=== PATIENT | female | born 1945 | race Caucasian/White ===

== ENCOUNTER 2020-02-19 09:37 | Outpatient (REF) | payer MEDICARE, SELFPAY ==
[2020-02-19 13:05] LABS: Estimated Average Glucose 137 mg/dL; Hemoglobin A1c % 6.4 %
[2020-02-19 13:56] LABS: Alanine Aminotransferase 17 U/L (0-31); Albumin Level 4.2 g/dL (3.5-5.0); Alkaline Phosphatase 68 U/L (39-117); Anion Gap 18 (12-20); Aspartate Amino Transferase 16 U/L (5-31); Bilirubin Total 0.6 mg/dL (0.0-1.0); Blood Urea Nitrogen 12 mg/dL (9-16); Calcium 9.1 mg/dL (8.4-10.2); Carbon Dioxide 25 mmol/L (22-29); Chloride 104 mmol/L (96-108); Cholesterol 177 mg/dL; Estimated Glomerular Filt Rate > 60; Glucose Fasting 126 mg/dL (60-99); HDL Cholesterol 51 mg/dL; LDL Cholesterol Calculated 79 mg/dl; Potassium 4.6 mmol/l (3.3-5.1); Sodium 142 mmol/L (135-145); Total Protein 6.7 g/dL (6.5-8.0); Triglycerides 235 mg/dL
[2020-02-19 13:57] LABS: Creatinine Urine 79.12 mg/dL; Microalbum/Creatinine Ratio Ur 39.1 ug/mg cr
[2020-02-19 14:02] LABS: Vitamin D 25-OH Total 61.2 ng/mL (>30)
== END 2020-02-19 09:38 | disposition home or self-care (01) ==
LOC: HO.MANLDS 09:37
PROVIDERS: PCP Internal Medicine; Visit Provider Internal Medicine
DX: E11.37X9 Type 2 diabetes mellitus with diabetic macular edema, resolved following treatment, unspecified eye (principal)
CPT/HCPCS: 36415; 80053; 80061; 82043; 82306; 83036

== ENCOUNTER 2020-05-14 14:32 | Outpatient (REF) | payer MEDICARE, SELFPAY ==
[2020-05-15 08:01] LABS: Estimated Average Glucose 131 mg/dL; Hemoglobin A1c % 6.2 %
== END 2020-05-14 14:33 | disposition home or self-care (01) ==
LOC: HO.MANLDS 14:32
PROVIDERS: PCP Internal Medicine; Visit Provider Internal Medicine
DX: E11.37X9 Type 2 diabetes mellitus with diabetic macular edema, resolved following treatment, unspecified eye (principal)
CPT/HCPCS: 36415; 83036

== ENCOUNTER 2020-05-20 13:58 | Outpatient (REF) | payer MEDICARE, SELFPAY | END 2020-05-20 13:59 | disposition home or self-care (01) | LOC: HO.MANLDS 13:58 | PROVIDERS: PCP Internal Medicine; Visit Provider Internal Medicine | DX: T50.905D Adverse effect of unspecified drugs, medicaments and biological substances, subsequent encounter (principal) | CPT/HCPCS: 36415; 84443 ==

== ENCOUNTER 2020-10-23 09:46 | Outpatient (REF) | payer MEDICARE, SELFPAY ==
[2020-10-23 11:46] LABS: Estimated Average Glucose 148 mg/dL; Hemoglobin A1c % 6.8 %
[2020-10-23 12:00] LABS: Alanine Aminotransferase 22 U/L (0-31); Alkaline Phosphatase 76 U/L (39-117); Anion Gap 13 (12-20); Aspartate Amino Transferase 18 U/L (5-31); Bilirubin Total 0.6 mg/dL (0.0-1.0); Blood Urea Nitrogen 9 mg/dL (9-16); Calcium 9.4 mg/dL (8.4-10.2); Carbon Dioxide 26 mmol/L (22-29); Chloride 106 mmol/L (96-108); Cholesterol 188 mg/dL; Estimated Glomerular Filt Rate > 60; Glucose Fasting 137 mg/dL (60-99); HDL Cholesterol 51 mg/dL; LDL Cholesterol Calculated 90 mg/dl; Potassium 4.2 mmol/L (3.3-5.1); Sodium 141 mmol/L (135-145); Total Protein 6.6 g/dL (6.5-8.0); Triglycerides 235 mg/dL
[2020-10-23 12:02] LABS: Free T4 (Free Thyroxine) 1.02 ng/dL (0.71-1.85); Thyroid Stimulating Hormone 3.21 uIU/mL (0.32-4.0)
== END 2020-10-23 09:47 | disposition home or self-care (01) ==
LOC: HO.MANLDS 09:46
PROVIDERS: PCP Internal Medicine; Visit Provider Internal Medicine
DX: E03.9 Hypothyroidism, unspecified (principal); R73.01 Impaired fasting glucose; E78.00 Pure hypercholesterolemia, unspecified; I10 Essential (primary) hypertension
CPT/HCPCS: 36415; 80053; 80061; 83036; 84439; 84443

== ENCOUNTER 2021-04-14 14:04 | Outpatient (REF) | payer MEDICARE, SELFPAY ==
[2021-04-14 20:04] LABS: Estimated Average Glucose 143 mg/dL; Hemoglobin A1c % 6.6 %
[2021-04-14 20:06] LABS: Alanine Aminotransferase 22 U/L (0-31); Alkaline Phosphatase 64 U/L (39-117); Anion Gap 13 (12-20); Aspartate Amino Transferase 16 U/L (5-31); Bilirubin Total 0.5 mg/dL (0.0-1.0); Blood Urea Nitrogen 13 mg/dL (9-16); Calcium 9.5 mg/dL (8.4-10.2); Carbon Dioxide 29 mmol/L (22-29); Chloride 103 mmol/L (96-108); Estimated Glomerular Filt Rate 55; Glucose Random 174 mg/dL (60-115); Potassium 4.5 mmol/L (3.3-5.1); Sodium 140 mmol/L (135-145); Total Protein 6.5 g/dL (6.5-8.0)
[2021-04-14 20:12] LABS: Creatinine Urine 97.34 mg/dL; Microalbum/Creatinine Ratio Ur 9.2 ug/mg cr
[2021-04-14 20:27] LABS: Thyroid Stimulating Hormone 1.17 uIU/mL (0.32-4.0); Vitamin D 25-OH Total 44.8 ng/mL (>30)
== END 2021-04-14 14:05 | disposition home or self-care (01) ==
LOC: HO.MANLDS 14:04
PROVIDERS: PCP Internal Medicine; Visit Provider Internal Medicine
DX: E11.37X9 Type 2 diabetes mellitus with diabetic macular edema, resolved following treatment, unspecified eye (principal)
CPT/HCPCS: 36415; 80053; 82043; 82306; 83036; 84443

== ENCOUNTER 2021-08-22 13:59 | Outpatient (REF) | payer MEDICARE, SELFPAY ==
[2021-08-22 19:08] LABS: Estimated Average Glucose 143 mg/dL; Hemoglobin A1c % 6.6 %
[2021-08-22 19:14] LABS: Vitamin D 25-OH Total 92.3 ng/mL (>30)
== END 2021-08-22 14:00 | disposition home or self-care (01) ==
LOC: HO.MANLDS 13:59
PROVIDERS: Visit Provider Internal Medicine
DX: E11.37X9 Type 2 diabetes mellitus with diabetic macular edema, resolved following treatment, unspecified eye (principal); M85.80 Other specified disorders of bone density and structure, unspecified site
CPT/HCPCS: 36415; 82306; 83036

== ENCOUNTER 2021-11-19 14:01 | Outpatient (REF) | payer MEDICARE, SELFPAY ==
[2021-11-19 18:28] LABS: Estimated Average Glucose 146 mg/dL; Hemoglobin A1c % 6.7 %
[2021-11-19 18:30] LABS: Alanine Aminotransferase 18 U/L (0-31); Albumin Level 4.2 g/dL (3.5-5.0); Alkaline Phosphatase 69 U/L (39-117); Anion Gap 15 (12-20); Aspartate Amino Transferase 17 U/L (5-31); Bilirubin Total 0.5 mg/dL (0.0-1.0); Blood Urea Nitrogen 14 mg/dL (9-16); Calcium 9.5 mg/dL (8.4-10.2); Carbon Dioxide 28 mmol/L (22-29); Chloride 104 mmol/L (96-108); Cholesterol 181 mg/dL; Estimated Glomerular Filt Rate 56; Glucose Random 113 mg/dL (60-115); HDL Cholesterol 44 mg/dL; LDL Cholesterol Calculated 81 mg/dl; Potassium 4.1 mmol/L (3.3-5.1); Sodium 143 mmol/L (135-145); Total Protein 6.8 g/dL (6.5-8.0); Triglycerides 283 mg/dL
[2021-11-19 18:51] LABS: Free T4 (Free Thyroxine) 1.09 ng/dL (0.71-1.85); Thyroid Stimulating Hormone 1.33 uIU/mL (0.32-4.0)
== END 2021-11-19 14:02 | disposition home or self-care (01) ==
LOC: HO.MANLDS 14:01
PROVIDERS: Visit Provider Internal Medicine
DX: E03.9 Hypothyroidism, unspecified (principal); R73.01 Impaired fasting glucose; E78.00 Pure hypercholesterolemia, unspecified; I10 Essential (primary) hypertension
CPT/HCPCS: 36415; 80053; 80061; 83036; 84439; 84443

== ENCOUNTER 2022-03-24 10:09 | Outpatient (REF) | payer MEDICARE, SELFPAY ==
[2022-03-24 20:56] LABS: Alanine Aminotransferase 21 U/L (0-31); Albumin Level 3.9 g/dL (3.5-5.0); Alkaline Phosphatase 71 U/L (39-117); Anion Gap 15 (12-20); Aspartate Amino Transferase 23 U/L (5-31); Bilirubin Total 0.6 mg/dL (0.0-1.0); Blood Urea Nitrogen 11 mg/dL (9-16); Calcium 9.8 mg/dL (8.4-10.2); Carbon Dioxide 28 mmol/L (22-29); Chloride 103 mmol/L (96-108); Cholesterol 214 mg/dL; Estimated Glomerular Filt Rate > 60; Glucose Random 122 mg/dL (60-115); HDL Cholesterol 42 mg/dL; Potassium 4.4 mmol/L (3.3-5.1); Sodium 142 mmol/L (135-145); Total Protein 6.3 g/dL (6.5-8.0); Triglycerides 431 mg/dL
[2022-03-24 21:12] LABS: Free T4 (Free Thyroxine) 1.11 ng/dL (0.71-1.85); Thyroid Stimulating Hormone 2.88 uIU/mL (0.32-4.0)
[2022-03-25 07:45] LABS: Estimated Average Glucose 137 mg/dL; Hemoglobin A1c % 6.4 %
== END 2022-03-24 10:10 | disposition home or self-care (01) ==
LOC: HO.MANLDS 10:09
PROVIDERS: Visit Provider Internal Medicine
DX: E03.9 Hypothyroidism, unspecified (principal); R73.01 Impaired fasting glucose; E78.00 Pure hypercholesterolemia, unspecified; I10 Essential (primary) hypertension
CPT/HCPCS: 36415; 80053; 80061; 83036; 84439; 84443

== ENCOUNTER 2022-07-08 10:27 | Outpatient (REF) | payer MEDICARE, SELFPAY ==
[2022-07-08 14:57] LABS: Estimated Average Glucose 131 mg/dL; Hemoglobin A1c % 6.2 %
[2022-07-08 15:25] LABS: Anion Gap 14 (12-20); Blood Urea Nitrogen 12 mg/dL (9-16); Calcium 9.1 mg/dL (8.4-10.2); Carbon Dioxide 30 mmol/L (22-29); Chloride 106 mmol/L (96-108); Estimated Glomerular Filt Rate > 60; Glucose Random 119 mg/dL (60-115); Potassium 4.7 mmol/L (3.3-5.1); Sodium 145 mmol/L (135-145)
[2022-07-08 15:36] LABS: Vitamin D 25-OH Total 65.7 ng/mL (>30)
== END 2022-07-08 10:28 | disposition home or self-care (01) ==
LOC: HO.MANLDS 10:27
PROVIDERS: Visit Provider Internal Medicine
DX: I10 Essential (primary) hypertension (principal); E11.37X9 Type 2 diabetes mellitus with diabetic macular edema, resolved following treatment, unspecified eye
CPT/HCPCS: 36415; 80048; 82306; 83036

== ENCOUNTER 2022-09-30 10:50 | Outpatient (REF) | payer MEDICARE, SELFPAY ==
[2022-09-30 13:30] LABS: Estimated Average Glucose 140 mg/dL; Hemoglobin A1c % 6.5 %
[2022-09-30 13:45] LABS: Cholesterol 171 mg/dL; HDL Cholesterol 49 mg/dL; LDL Cholesterol Calculated 74 mg/dl; Triglycerides 242 mg/dL
[2022-09-30 14:05] LABS: Vitamin D 25-OH Total 80.5 ng/mL (>30)
== END 2022-09-30 10:51 | disposition home or self-care (01) ==
LOC: HO.MANLDS 10:50
PROVIDERS: Visit Provider Internal Medicine
DX: E11.37X9 Type 2 diabetes mellitus with diabetic macular edema, resolved following treatment, unspecified eye (principal); E78.5 Hyperlipidemia, unspecified; E55.9 Vitamin D deficiency, unspecified; E11.3293 Type 2 diabetes mellitus with mild nonproliferative diabetic retinopathy without macular edema, bilateral
CPT/HCPCS: 36415; 80061; 82306; 83036

== ENCOUNTER 2022-12-29 09:34 | Outpatient (REF) | payer MEDICARE, SELFPAY ==
[2022-12-29 14:03] LABS: Estimated Average Glucose 148 mg/dL; Hemoglobin A1c % 6.8 % (<6.0)
[2022-12-29 14:32] LABS: Alanine Aminotransferase 17 U/L (0-31); Alkaline Phosphatase 72 U/L (39-117); Anion Gap 12 (12-20); Aspartate Amino Transferase 16 U/L (5-31); Bilirubin Total 0.5 mg/dL (0.0-1.0); Blood Urea Nitrogen 10 mg/dL (9-16); Calcium 9.5 mg/dL (8.4-10.2); Carbon Dioxide 29 mmol/L (22-29); Chloride 103 mmol/L (96-108); Cholesterol 155 mg/dL (<200); Estimated Glomerular Filt Rate > 60; Free T4 (Free Thyroxine) 1.07 ng/dL (0.71-1.85); Glucose Random 122 mg/dL (60-115); HDL Cholesterol 49 mg/dL (>40); LDL Cholesterol Calculated 68 mg/dL (<100); Sodium 140 mmol/L (135-145); Thyroid Stimulating Hormone 1.64 uIU/mL (0.32-4.0); Total Protein 6.9 g/dL (6.5-8.0); Triglycerides 193 mg/dL (<150)
== END 2022-12-29 09:35 | disposition home or self-care (01) ==
LOC: HO.MANLDS 09:34
PROVIDERS: Visit Provider Internal Medicine
DX: E03.9 Hypothyroidism, unspecified (principal); E11.9 Type 2 diabetes mellitus without complications
CPT/HCPCS: 36415; 80053; 80061; 83036; 84439; 84443

== ENCOUNTER 2023-03-29 11:16 | Outpatient (REF) | payer MEDICARE, SELFPAY ==
[2023-03-29 13:29] LABS: MANUAL DIFF FLAG NO
[2023-03-29 13:46] LABS: Basophils Absolute Auto 0.1 X10*3/uL (0.0-0.2); Eosinophils Absolute Auto 0.4 X10*3/uL (0.0-0.4); Eosinophils Percent Auto 6.7 % (0-4); Hemoglobin 13.8 g/dl (12.0-16.0); Imm Gran Abs Auto 0.01 X10*3/uL (0.00-0.03); Imm Gran Pct Auto 0.2 % (0.0-0.4); Lymphocytes Absolute Auto 1.8 X10*3/uL (1.2-4.9); Lymphocytes Percent Auto 34.6 % (20-40); Mean Corpuscular HGB Conc 33.7 g/dl (31.0-35.0); Mean Corpuscular Hemoglobin 29.7 pg (27.0-33.0); Mean Corpuscular Volume 88.2 fL (80.0-98.0); Mean Platelet Volume 11.4 fL (9.4-12.3); Monocytes Absolute Auto 0.4 X10*3/uL (0.1-1.2); Monocytes Percent Auto 7.2 % (2-11); Neutrophils Absolute Auto 2.7 x10*3/uL (2.0-8.3); Neutrophils Percent Auto 50.3 % (45-73); Platelet Count 248 X10*3/uL (160-400); Red Blood Count 4.65 X10*6/uL (4.20-5.50); White Blood Count 5.3 X10*3/uL (4.8-10.8)
[2023-03-29 14:01] LABS: Estimated Average Glucose 134 mg/dL; Hemoglobin A1c % 6.3 % (<6.0)
[2023-03-29 14:47] LABS: Alanine Aminotransferase 23 U/L (0-31); Albumin Level 3.9 g/dL (3.5-5.0); Alkaline Phosphatase 55 U/L (39-117); Anion Gap 14 (12-20); Aspartate Amino Transferase 17 U/L (5-31); Bilirubin Total 0.6 mg/dL (0.0-1.0); Blood Urea Nitrogen 11 mg/dL (9-16); Calcium 9.7 mg/dL (8.4-10.2); Carbon Dioxide 26 mmol/L (22-29); Chloride 107 mmol/L (96-108); Cholesterol 177 mg/dL (<200); Estimated Glomerular Filt Rate > 60; Glucose Random 148 mg/dL (60-115); HDL Cholesterol 46 mg/dL (>40); LDL Cholesterol Calculated 84 mg/dL (<100); Potassium 3.9 mmol/L (3.3-5.1); Sodium 143 mmol/L (135-145); Total Protein 6.7 g/dL (6.5-8.0); Triglycerides 236 mg/dL (<150)
[2023-03-29 15:05] LABS: Free T4 (Free Thyroxine) 0.97 ng/dL (0.71-1.85); Thyroid Stimulating Hormone 1.88 uIU/mL (0.32-4.0); Vitamin D 25-OH Total 61.8 ng/mL (>30)
== END 2023-03-29 11:17 | disposition home or self-care (01) ==
LOC: HO.MANLDS 11:16
PROVIDERS: Visit Provider Internal Medicine
DX: E11.37X9 Type 2 diabetes mellitus with diabetic macular edema, resolved following treatment, unspecified eye (principal); K22.2 Esophageal obstruction; E03.9 Hypothyroidism, unspecified; E78.00 Pure hypercholesterolemia, unspecified; E55.9 Vitamin D deficiency, unspecified
CPT/HCPCS: 36415; 80053; 80061; 82306; 83036; 84439; 84443; 85025

== ENCOUNTER 2023-08-27 10:11 | Outpatient (REF) | payer MEDICARE, SELFPAY ==
[2023-08-27 13:26] LABS: Estimated Average Glucose 143 mg/dL; Hemoglobin A1c % 6.6 % (<6.0)
[2023-08-27 14:15] LABS: Thyroid Stimulating Hormone 1.68 uIU/mL (0.32-4.0); Vitamin D 25-OH Total 77.1 ng/mL (>30)
== END 2023-08-27 10:12 | disposition home or self-care (01) ==
LOC: HO.MANLDS 10:11
PROVIDERS: Visit Provider Internal Medicine
DX: E03.9 Hypothyroidism, unspecified (principal); E55.9 Vitamin D deficiency, unspecified; E11.9 Type 2 diabetes mellitus without complications
CPT/HCPCS: 36415; 82306; 83036; 84443

== ENCOUNTER 2023-12-06 10:23 | Outpatient (REF) | payer MEDICARE, SELFPAY ==
[2023-12-06 13:25] LABS: MANUAL DIFF FLAG NO
[2023-12-06 13:35] LABS: Basophils Absolute Auto 0.1 X10*3/uL (0.0-0.2); Eosinophils Absolute Auto 0.4 X10*3/uL (0.0-0.4); Eosinophils Percent Auto 6.1 % (0-4); Hematocrit 42.1 % (37.0-47.0); Hemoglobin 13.8 g/dl (12.0-16.0); Imm Gran Abs Auto 0.01 X10*3/uL (0.00-0.03); Imm Gran Pct Auto 0.2 % (0.0-0.4); Lymphocytes Percent Auto 33.7 % (20-40); Mean Corpuscular HGB Conc 32.8 g/dl (31.0-35.0); Mean Corpuscular Hemoglobin 29.6 pg (27.0-33.0); Mean Corpuscular Volume 90.1 fL (80.0-98.0); Monocytes Absolute Auto 0.5 X10*3/uL (0.1-1.2); Monocytes Percent Auto 7.8 % (2-11); Neutrophils Absolute Auto 3.1 x10*3/uL (2.0-8.3); Neutrophils Percent Auto 51.2 % (45-73); Platelet Count 224 X10*3/uL (160-400); Red Blood Count 4.67 X10*6/uL (4.20-5.50); Red Cell Distribution Width 12.9 % (11.0-16.0); White Blood Count 6.1 X10*3/uL (4.8-10.8)
[2023-12-06 13:39] LABS: Estimated Average Glucose 146 mg/dL; Hemoglobin A1C 174.8143 umol/L; Hemoglobin A1c % 6.7 % (<6.0); Total Hemoglobin (HGBA1C) 3491.7184 umol/L
[2023-12-06 15:25] LABS: Alanine Aminotransferase 23 U/L (0-31); Alkaline Phosphatase 74 U/L (39-117); Anion Gap 13 (12-20); Aspartate Amino Transferase 21 U/L (5-31); Bilirubin Total 0.6 mg/dL (0.0-1.0); Blood Urea Nitrogen 12 mg/dL (9-16); Calcium 10.1 mg/dL (8.4-10.2); Carbon Dioxide 30 mmol/L (22-29); Chloride 103 mmol/L (96-108); Cholesterol 208 mg/dL (<200); Estimated Glomerular Filt Rate > 60; Glucose Random 143 mg/dL (60-115); HDL Cholesterol 47 mg/dL (>40); LDL Cholesterol Calculated 92 mg/dL (<100); Potassium 4.3 mmol/L (3.3-5.1); Sodium 142 mmol/L (135-145); Total Protein 6.8 g/dL (6.5-8.0); Triglycerides 347 mg/dL (<150)
[2023-12-06 15:27] LABS: T4 Thyroxine 7.9 ug/dL (4.5-12.0); Thyroid Stimulating Hormone 2.37 uIU/mL (0.32-4.0)
[2023-12-06 15:38] LABS: Vitamin B12 843 pg/mL (200-900)
== END 2023-12-06 10:24 | disposition home or self-care (01) ==
LOC: HO.MANLDS 10:23
PROVIDERS: Internal Medicine; Visit Provider Physician Assistant
DX: E78.1 Pure hyperglyceridemia (principal); E53.8 Deficiency of other specified B group vitamins; E03.9 Hypothyroidism, unspecified; R73.01 Impaired fasting glucose
CPT/HCPCS: 36415; 80053; 80061; 82607; 83036; 84436; 84443; 85025

== ENCOUNTER 2024-08-29 09:52 | Outpatient (REF) | payer MEDICARE, SELFPAY ==
--- OUTSIDE RECORDS SUMMARY | 2024-08-29 10:40 | XMS_ITS | Data Portability ---
Author Organization [facility], Telehealth Patient Home Address [address] [place] [address] Assessment Encounter Date Assessment Date Assessment LastModified by Organization Details LastModified Time 10/27/2023 10/27/2023 [id number] [place] [id number] (VEGETABLES COOK) [facility] MODERATE MUST MEET 2 OUT OF 3 ELEMENTS: PROBLEMS, DATA OR RISK ELEMENT 1: PROBLEMS ADDRESSED 1 OR MORE CHRONIC ILLNESS WITH EXACERBATION OR 2 OR MORE STABLE CHRONIC ILLNESSES OR 1 UNDIAGNOSED NEW PROBLEM OR 1 ACUTE ILLNESS W/SYMPTOMS OR 1 ACUTE COMPLICATED INJURY ELEMENT 2: DATA MUST MEET 1 OF 3 CATEGORIES CATEGORY 1: REVIEW OF PRIOR EXTERNAL NOTES, REVIEW OF RESULTS, ORDERING OF EACH TEST, ASSESSMENT REQUIRING INDEPENDENT HISTORIAN OR CATEGORY 2: INDEPENDENT INTERPRETATION OF TESTS BY ANOTHER PHYSICIAN OR SPECIALIST OR CATEGORY 3: DISCUSSION OF MGT OR TEST INTERPRETATION W/EXTERNAL PHYSICIAN OR SPECIALIST ELEMENT 3: RISK RISK OF COMPLICATIONS AND/OR MORBIDITY OR MORTALITY OF PATIENT MANAGEMENT PROVIDER MUST THOROUGHLY DOCUMENT EACH ELEMENT THAT IS COVERED Not available 10/27/2023 14:59:36 12/13/2023 12/13/2023 [id number] [place] [id number] (VEGETABLES COOK) [facility] MODERATE MUST MEET 2 OUT OF 3 ELEMENTS: PROBLEMS, DATA OR RISK ELEMENT 1: PROBLEMS ADDRESSED 1 OR MORE CHRONIC ILLNESS WITH EXACERBATION OR 2 OR MORE STABLE CHRONIC ILLNESSES OR 1 UNDIAGNOSED NEW PROBLEM OR 1 ACUTE ILLNESS W/SYMPTOMS OR 1 ACUTE COMPLICATED INJURY ELEMENT 2: DATA MUST MEET 1 OF 3 CATEGORIES CATEGORY 1: REVIEW OF PRIOR EXTERNAL NOTES, REVIEW OF RESULTS, ORDERING OF EACH TEST, ASSESSMENT REQUIRING INDEPENDENT HISTORIAN OR CATEGORY 2: INDEPENDENT INTERPRETATION OF TESTS BY ANOTHER PHYSICIAN OR SPECIALIST OR CATEGORY 3: DISCUSSION OF MGT OR TEST INTERPRETATION W/EXTERNAL PHYSICIAN OR SPECIALIST ELEMENT 3: RISK RISK OF COMPLICATIONS AND/OR MORBIDITY OR MORTALITY OF PATIENT MANAGEMENT PROVIDER MUST THOROUGHLY DOCUMENT EACH ELEMENT THAT IS COVERED Not available 12/13/2023 14:21:55 01/04/2024 01/04/2024 [id number] [place] [id number] (VEGETABLES COOK) [facility] MODERATE MUST MEET 2 OUT OF 3 ELEMENTS: PROBLEMS, DATA OR RISK ELEMENT 1: PROBLEMS ADDRESSED 1 OR MORE CHRONIC ILLNESS WITH EXACERBATION OR 2 OR MORE STABLE CHRONIC ILLNESSES OR 1 UNDIAGNOSED NEW PROBLEM OR 1 ACUTE ILLNESS W/SYMPTOMS OR 1 ACUTE COMPLICATED INJURY ELEMENT 2: DATA MUST MEET 1 OF 3 CATEGORIES CATEGORY 1: REVIEW OF PRIOR EXTERNAL NOTES, REVIEW OF RESULTS, ORDERING OF EACH TEST, ASSESSMENT REQUIRING INDEPENDENT HISTORIAN OR CATEGORY 2: INDEPENDENT INTERPRETATION OF TESTS BY ANOTHER PHYSICIAN OR SPECIALIST OR CATEGORY 3: DISCUSSION OF MGT OR TEST INTERPRETATION W/EXTERNAL PHYSICIAN OR SPECIALIST ELEMENT 3: RISK RISK OF COMPLICATIONS AND/OR MORBIDITY OR MORTALITY OF PATIENT MANAGEMENT PROVIDER MUST THOROUGHLY DOCUMENT EACH ELEMENT THAT IS COVERED Not available 01/04/2024 14:53:10 03/22/2024 03/22/2024 [id number] [place] [id number] (VEGETABLES COOK) [facility] MODERATE MUST MEET 2 OUT OF 3 ELEMENTS: PROBLEMS, DATA OR RISK ELEMENT 1: PROBLEMS ADDRESSED 1 OR MORE CHRONIC ILLNESS WITH EXACERBATION OR 2 OR MORE STABLE CHRONIC ILLNESSES OR 1 UNDIAGNOSED NEW PROBLEM OR 1 ACUTE ILLNESS W/SYMPTOMS OR 1 ACUTE COMPLICATED INJURY ELEMENT 2: DATA MUST MEET 1 OF 3 CATEGORIES CATEGORY 1: REVIEW OF PRIOR EXTERNAL NOTES, REVIEW OF RESULTS, ORDERING OF EACH TEST, ASSESSMENT REQUIRING INDEPENDENT HISTORIAN OR CATEGORY 2: INDEPENDENT INTERPRETATION OF TESTS BY ANOTHER PHYSICIAN OR SPECIALIST OR CATEGORY 3: DISCUSSION OF MGT OR TEST INTERPRETATION W/EXTERNAL PHYSICIAN OR SPECIALIST ELEMENT 3: RISK RISK OF COMPLICATIONS AND/OR MORBIDITY OR MORTALITY OF PATIENT MANAGEMENT PROVIDER MUST THOROUGHLY DOCUMENT EACH ELEMENT THAT IS COVERED Not available 03/22/2024 14:44:52 Plan of Treatment Reminders Order Date Submit Date Provider Last Modified By Organization Details Last Modified Time Details Appointments MEDICARE ANNUAL WELLNESS 2024 12:00P M DR DODSON Not available Not available Not available Lab HbA1c (hemoglob in A1c), blood 2023 024 [facility], [address] [place] [address], [place], [address], 01/04/2024 14:56:16 CMP, serum or plasma 2023 024 [facility], [address] [place] [address], [place], [address], 01/04/2024 14:56:16 lipid panel, blood 2023 024 [facility], [address] [place] [address], [place], [address], 12/07/2023 15:08:10 CBC w/ auto diff 2023 024 [facility], [address] [place] [address], [address], 12/07/2023 11:44:12 CMP, serum or plasma 2023 024 [facility], [address] [place] [address], [address], 12/07/2023 11:44:12 Referral None recorded. Procedures None recorded. Surgeries None recorded. Imaging MAMMO, screening , bilateral 2023 024 [email or web address] 10 Not available 10/27/2023 15:10:26 bone density 2023 024 [email or web address] 10 Not available 10/27/2023 15:10:26 Medication Orders metformin 500 mg tablet 2024 025 [facility]2024, [address] [place], [address], 03/22/2024 14:47:01 doxycycli ne hyclate 100 mg capsule 2023 025 [facility] #2024, [address] [place], [address], 03/22/2024 14:16:48 amlodipin e 10 mg tablet 2023 024 [facility] #5, [address] [place], [address], 12/13/2023 14:28:37 cephalexi n 500 mg capsule 2023 025 [facility], [address] [place], [address], 03/22/2024 14:16:42 amlodipin e 5 mg tablet 2023 024 [facility], [address] [place], [address], 11/15/2023 21:02:07 Patient TargetsNo targets recorded. Patient Instructions Encounter Date Encounter Id Patient Instructions Last Modified By Organization Details Last Modified Time 09/01/2023 [id number] learning about type 2 diabetes Not available 09/01/2023 14:00:40 type 2 diabetes: care instructions Not available 09/01/2023 14:00:39 10/27/2023 [id number] actinic keratosis: care instructions Not available 10/27/2023 15:06:22 12/13/2023 [id number] pulse oximetry* Not available 12/13/2023 14:28:41 learning about type 2 diabetes Not available 12/13/2023 14:28:35 type 2 diabetes: care instructions Not available 12/13/2023 14:28:35 high blood pressure: care instructions Not available 12/13/2023 14:28:35 learning about high blood pressure Not available 12/13/2023 14:28:35 hypothyroidism: care instructions Not available 12/13/2023 14:28:35 01/04/2024 [id number] learning about type 2 diabetes Not available 01/04/2024 14:55:02 type 2 diabetes: care instructions Not available 01/04/2024 14:55:02 03/22/2024 [id number] constipation: care instructions Not available 03/22/2024 14:46:53 pulse oximetry* Not available 03/22/2024 14:46:53 high blood pressure: care instructions Not available 03/22/2024 14:46:53 learning about high blood pressure Not available 03/22/2024 14:46:53 hypothyroidism: care instructions Not available 03/22/2024 14:46:53 Reason for Referral None Reported. Results Created Date Observation Date Name Description Value Unit Range Abnormal Flag Note LastModifiedBy Organization Detail LastModifiedTime 12/13/19 24 12/13/2023 pulse oxime try* Result 95 Not Available [facility] [address] [facility] [address], [place], [address], 11/17/2023 15:48:56 03/22/19 25 03/22/2024 pulse oxime try* Result 98% Not Available [facility] [address] [facility] [address], [place], [address], 03/21/2024 09:03:40 04/20/19 25 04/18/2024 MAMMO , scree marah, bilat eral No observ ation record ed. [email or web address] [facility] - Callback Orders Only [address] [place], [address], 04/19/2024 16:33:46 07/15/19 25 07/13/2024 bone densi ty No observ ation record ed. [email or web address] [facility] [address] [place], [address], 07/14/2024 16:19:33 Result Notes None recorded. 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 Not Available [facility] 3 09:24:55 Krystle sahni [id number] Completed 201912/25/2019 Terrance Dodson, [address] [place], [address], [facility] 0 06:32:35 Type 2 diabetes mellitus 14534125 Completed 201902/26/2020 Terrance Machado Teresarico, DO [address] [place] [address], [address], [facility] 1 11:31:39 Achalasi a of esophagu s 26040283 Completed 201912/25/2019 Terrance Dodson, DO [address] [place] [address], [address], [facility] 0 06:32:29 [facility] hyperten shine 78269048 Active 2017 Not Available [facility] 3 09:24:55 Environm ental allergy 078663820 Active 2017 Not Available [facility] 3 09:24:55 Hypercho lesterol emia 74280625 Active 2017 Not Available [facility] 3 09:24:55 Hemorrho ids 91671454 Active 2017 Not Available [facility] 3 09:24:55 Divertic ulitis 979457300 Active 2017 Not Available [facility] 3 09:24:55 Impaired fasting glycemia 145112077 Completed 201707/05/2019 Terrance Dodson, DO [address] [place] [address], [address], [facility] 1 14:05:59 Allergic rhinitis 38650081 Active 2017 Not Available [facility] 3 09:24:55 Hiatal hernia 97209101 Active 2017 Not Available [facility] 3 09:24:55 Asthma 896280319 Active 2017 Not Available [facility] 3 09:24:55 Strictur e of esophagu s 77099589 Active 2017 dilated X2 Not Available [facility] 3 09:24:55 Hypothyr oidism 02488391 Active 2017 Not Available [facility] 3 09:24:55 Impaired fasting glycemia 515424080 Active 2020 Not Available [facility] 3 09:24:55 Type 2 diabetes mellitus 77085814 Active 2020 Not Available [facility] 3 09:24:55 Lumbar spondylo sis 748015572 Active 2021 Not Available [facility] 3 09:24:55 Postmeno pausal osteopen ia 075784149 Active 2021 Not Available [facility] 3 09:24:55 Low back pain 023884245 Active 2021 Not Available [facility] 3 09:24:55 Lumbar spondylo listhesi s 1622428788 13580 Active 2021 Not Available [facility] 3 09:24:55 Retinal artery occlusio n 839034366 Active 2021 Not Available [facility] 3 09:24:55 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 858932583 Active 2022 Not Available [facility] 3 09:24:55 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 Not Available [facility] 3 09:24:55 Cobalami n deficien cy 994728353 Active 2022 Not Available [facility] 3 09:24:55 Dyspnea on exertion 93802317 Active 2022 Not Available [facility] 3 09:24:55 Hyperlip idemia 46498432 Active 2022 Not Available [facility] 3 09:24:55 Vitamin D deficien cy 96990043 Active 2022 Not Available [facility] 3 09:24:55 Actinic keratosi s 146764062 Active 2023 Terrance Dodson DO [address] [place], [address], [facility] 4 15:04:05 Infectio n of sebaceou s cyst 221939162 Active 2023 Terrance Dodson DO [address] [place] [address], [address], [facility] 4 14:25:52 Long-ter m drug therapy Active 2024 Terrance Dodson DO [address] [place] [address], [address], [facility] 21:36:26 Constipa tion 61625859 Active 2024 Terrance Dodson DO [address] [place] [address], [address], [facility] 14:45:06 Impacted cerumen of bilatera l ears 4901855778 352089 Active 2024 Terrance Dodson DO [address] [place] [address], [address], [facility] 14:46:02 Notes:Some problems listed i n Document: #[id number] could not be added to this patient's chart. Please review this document and add these problems to the patient's chart manually as needed. Problem Notes None recorded. Procedures Surgical History Date Name Laterality Status Provider Name and Address Organization Details Recorded Time 025 Most Recent Mammogram completed Katie Mendez [facility] 04/19/2024 16:33:22 024 Colonoscopy completed Terrance Dodson DO [address] [place] [address], [address], [facility] 04/01/2023 15:32:54 017 Date of Last Pap Smear completed [facility] 06/01/2018 08:21:07 017 Cataract Surgery completed [facility] 06/01/2018 14:01:32 017 Cataract Surgery completed [facility] 06/01/2018 14:01:18 tonsillectomy completed Monique cole NP, S [address] [place] [address], [address], [facility] 06/01/2018 13:43:00 Episiotomy or vaginal repair completed Monique Horton NP, [address] [place], [address], [facility] 06/01/2018 13:43:11 extraction of cataract completed Monique Horton NP, [address] [place], [address], [facility] 06/01/2018 13:56:38 Imaging Results None recorded. Procedure Notes None recorded. Medical Equipment None Reported. Allergies Allergen ID Allergen Name Allergen Category Reaction Reaction Severity Criticality Documentation Date Start Date Code Code System Note Provider Name and Address Organization Details Recorded Time 3066 Substance with sulfonami de structure and antibacte rial mechanism of action (substanc e) medicatio n hives Not available Not available 06/28/2018 86162 8003 SNOMED Rachel Camara [facility] 9 11:12:39 330 Product containin g angiotens in-conver ting enzyme inhibitor (product) medicatio n cough Not available Not available 04/20/2017 48711 009 SNOMED Bryanna Alvarez [facility] 8 16:20:01 331 codeine medicatio n Not available Not available Not available 04/20/2017 2670 RxNorm Bryanna Alvarez [facility] 8 16:20:05 Medications Name Sig Start Date Stop Date Status Note LastModified by Organization Details LastModified Time losartan 50 mg tablet TAKE 1 TABLET BY MOUTH TWICE A DAY active Not Available Not Available No t Available amoxicillin 500 mg capsule 11/12 completed Not Available Not Available Not Available metformin 500 mg tablet Take 1 tablet every day by oral route for 90 days. 2024 active Not Available Not Available Not Avai lable magnesium 500 mg tablet 250mg every other night, then 500mg with calcium 1000mg and vit. d 400IU active oil Not Available Not Available No t Available doxycycline hyclate 100 mg capsule Take 1 capsule twice a day by oral route for 10 days. 03/22 completed Not Available Not Available Not Available ofloxacin 0.3 % eye drops 06/28 completed Not Available Not Available Not Available famotidine 40 mg tablet TAKE 1 TABLET BY MOUTH TWICE A DAY 02/25 completed Not Available Not Available Not Available amlodipine 5 mg tablet TAKE 1 TABLET BY MOUTH EVERY DAY and 2 tablets on wednesday and 11/14 completed Not Available Not Available Not Available aspirin 81 mg tablet,terri yed release Take 1 tablet every day by oral route. active Not Available Not Available No t Available levothyroxi ne 25 mcg tablet TAKE 1 TABLET BY MOUTH EVERY DAY 2024 active Not Available Not Available Not Avai lable prednisolon e acetate 1 % eye drops,suspe nsion 06/28 completed Not Available Not Available Not Available amlodipine 10 mg tablet TAKE 1 TABLET BY MOUTH EVERY DAY active Not Available Not Available No t Available cephalexin 500 mg capsule TAKE 1 CAPSULE BY MOUTH THREE TIMES A DAY FOR 10 DAYS 03/22 completed Not Available Not Available Not Available pantoprazol e 40 mg tablet,terri yed release 05/20 completed Not Available Not Available Not Available simvastatin 20 mg tablet TAKE 1 TABLET BY MOUTH EVERY DAY active Not Available Not Available No t Available losartan 25 mg tablet Take 2 tablets twice a day by oral route. 11/12 completed Not Available Not Available Not Available omeprazole 20 mg capsule,del ayed release TAKE 1 CAPSULE BY MOUTH TWICE A DAY active Not Available Not Available No t Available bisacodyl 5 mg tablet,terri yed release TAKE 4 TABLETS BY MOUTH DAILY FOR 1 DAY 04/19 completed Not Available Not Available Not Available hydrochloro thiazide 25 mg tablet TAKE 1 TABLET BY MOUTH EVERY DAY FOR 30 DAYS 01/04 completed Not Available Not Available Not Available Ventolin HFA 90 mcg/actuati on aerosol inhaler Inhale 2 puff(s) every 4 hours by inhalatio n route as needed for 30 days. 2024 active Not Available Not Available Not Avai lable Pneumovax-2 3 25 mcg/0.5 mL injection syringe 07/04 completed Not Available Not Available Not Available rosuvastati n 5 mg tablet 06/28 completed Not Available Not Available Not Available ibandronate 150 mg tablet Take 1 tablet every month by oral route for 30 days. 10/06 completed Not Available Not Available Not Available Boostrix Tdap 2.5 Lf unit-8 mcg-5 Lf/0.5 mL intramuscul ar syringe [facility] 05/20 completed Not Available Not Available Not Available Co Q-10 Take 100 mg daily. active Not Available Not Available No t Available Fish Oil active Not Available Not Avai lable Not Available Aspir-81 05/20 completed Not Available Not Available Not Available Glucosamine 12/06 completed Not Available Not Available Not Available Nasacort active Not Available Not Avai lable Not Available Vitamin D3 4000 IU active Not Available Not A vailable Not Available multivitami n active Not Available Not Available Not Available bevacizumab every 6 week injection s 12/12 completed Not Available Not Available Not Available Cinnamon Take 1000mg qd 11/12 completed Not Available Not Available Not Available levocetiriz ine 5 mg tablet TAKE 1 TABLET BY MOUTH EVERY DAY active Not Available Not Available No t Available GaviLyte-G 236 gram-22.74 gram-6.74 gram-5.86 gram oral solution 05/20 completed Not Available Not Available Not Available Prevnar 13 (PF) 0.5 mL intramuscul ar syringe 02/21 completed Not Available Not Available Not Available Eylea active Not Available Not Availa ble Not Available Eye Drops (tetrahydro zoline) allegy 04/19 completed Not Available Not Available Not Available Breo Ellipta 200 mcg-25 mcg/dose powder for inhalation Inhale 1 puff every day by inhalatio n route. 04/19 completed Not Available Not Available Not Available Shingrix (PF) 50 mcg/0.5 mL intramuscul ar suspension, kit [facility] 05/20 completed Not Available Not Available Not Available Fluzone High-Dose (PF) 180 mcg/0.5 mL intramuscul ar syringe 02/21 completed Not Available Not Available Not Available turmeric active Not Available Not Avai lable Not Available Fluad 2018- 65yr up(PF)45 mcg(15 mcgx3)/0.5 mL intramuscul ar syringe 07/04 completed Not Available Not Available Not Available Flublok Quad (PF) 180 mcg (45 mcg x 4)/0.5 mL IM syringe [facility] 05/20 completed Not Available Not Available Not Available Karen Ellipta 200 mcg-62.5 mcg-25 mcg powder for inhalation Inhale 1 puff every day by inhalatio n route. active Not Available Not Available No t Available Vitals Date Recorded Body height Body mass index (BMI) Body weight Heart rate Oxygen saturation Oxygen saturation in Arterial blood by Pulse oximetry Systolic And Diastolic Provider Name and Address Organization Details Last Updated DateTime 5 156.21 cm 27.9 kg/m2 66970.8 6 g 78 /min 98 % 98 % 124/74 mm[Hg] Imtiaz Bone [facility] 5 14:20:09 Date Recorded Body height Body mass index (BMI) Body weight Heart rate Oxygen saturation Oxygen saturation in Arterial blood by Pulse oximetry Systolic And Diastolic Provider Name and Address Organization Details Last Updated DateTime 4 155.58 cm 28.1 kg/m2 04914.8 6 g 83 /min 96 % 96 % 128/72 mm[Hg] Nelli Godoy [facility] 4 13:33:26 Date Recorded Body height Body mass index (BMI) Body weight Heart rate Oxygen saturation Oxygen saturation in Arterial blood by Pulse oximetry Systolic And Diastolic Provider Name and Address Organization Details Last Updated DateTime 4 155.58 cm 28.1 kg/m2 16041.8 6 g 75 /min 97 % 97 % 127/64 mm[Hg] Nelli Godoy [facility] 4 14:26:54 Date Recorded Body height Body mass index (BMI) Body weight Heart rate Oxygen saturation Oxygen saturation in Arterial blood by Pulse oximetry Systolic And Diastolic Provider Name and Address Organization Details Last Updated DateTime 4 156.21 cm 28.4 kg/m2 88971.6 3 g 72 /min 95 % 95 % 122/72 mm[Hg] Imtiaz Bone [facility] 4 13:45:47 Date Recorded Body height Provider Name an d Address Organization Details Last Updated DateTime 01/04/2024 156.21 cm Toney Nagel O [address] [place], [address], [facility] 01/04/2024 14:51:18 Social History Question Answer Notes LastModified by Organizat ion Details LastModified Time Tobacco Smoking Status Never Smoker Not Available [facility] 12/19/2019 03:36:24 What Was The Date Of Your Most Recent Tobacco Screening? 03/22/2024 [email or web address] Information not available 03/22/2024 Sex: Unknown Functional Status Question Answer Note LastModified by Organization D etails LastModified Time Do you or have you ever used any other forms of tobacco or nicotine? No Information not available 08/27/2021 Mental Status None recorded. Family History Relationship Description Onset Age of this Age Resolved Age Notes LastModified by Organization Details LastModified Time Father Type 2 diabetes mellitus 64 CAD, myaste dom gravis silvia Not available 06/01/2018 13:41:36 Mother Hypertensive disorder 93 silvia Not available 2018 13:41:50 Sister Cyst of kidney silvia Not available 2018 13:42:31 Medical History Condition Response Coronary Artery Disease N Gout Y Kidney Stones N Blood Diseases N Hyperthyroidism N Breast Cancer N Blood Transfusion N Lung Disease N Depression N COPD N Hypothyroidism Y Defects or Inherited Disease N Difficulty Swallowing N Anesthesia Complications N Anxiety Disorder N Meniere's disease N Muscle, Joint, or Bone Problems Y Vision or Eye Problems Y Arthritis N Polyps N Mental Disorder N Cancer N Stroke N Bladder or Kidney Problems High Cholesterol Y Liver Disease N Fibromyalgia N Kidney Disease N Allergies/Hayfever Y Thyroid Problems Y GI Problems N Skin Problems Y Anemia N Constipation N Diabetes Y Ovarian Cancer N Seizures/Epilepsy N Congestive Heart Failure (CHF) N Eczema N Abuse/Domestic Violence N Diverticulitis N Asthma Y Reflux/GERD Y Hepatitis Y Heart Disease N Pulmonary Embolism N Chronic Ear Infections Y Hypertension Y Chicken Pox Y Osteoporosis N Gynecological History Statement/Question Response Date of Last Pap Smear 11/17/2016 Most Recent Mammogram 04/19/2024 Obstetrics History GPAL:G 2 P 1 0 0 1 Type Value Full Term 1 Living 1 Total 2 Immunizations Vaccine Type Date Status Note Provider Nam e and Address Organization Details Recorded Time Influenza, split virus, quadrivalent, preservative 11/02/19 18 completed Not Available [facility] 09/19/2022 22:44:39 Pneumococcal conjugate PCV 13 11/02/19 18 completed Not Available [facility] 09/19/2022 22:44:39 Influenza, split virus, quadrivalent, preservative 11/20/19 21 completed Not Available [facility] 09/19/2022 22:44:39 COVID-19, mRNA, LNP-S, PF, 100 mcg/0.5mL dose or 50 mcg/0.25mL dose 12/11/19 21 completed Not Available [facility] 09/19/2022 22:44:39 COVID-19, mRNA, LNP-S, PF, 100 mcg/0.5mL dose or 50 mcg/0.25mL dose 06/24/19 22 completed Not Available [facility] 09/19/2022 22:44:39 COVID-19, mRNA, LNP-S, PF, 100 mcg/0.5mL dose or 50 mcg/0.25mL dose 12/05/19 22 completed Not Available [facility] 09/19/2022 22:44:39 Influenza, split virus, quadrivalent, preservative 12/23/19 22 completed Not Available [facility] 09/19/2022 22:44:39 SARS-COV-2 (COVID-19) vaccine, UNSPECIFIED 12/09/19 23 completed Terrance Dodson [address], [address], [facility] 12/11/2022 06:50:01 Respiratory syncytial virus (RSV) vaccine, unspecified 01/13/20 23 completed Terrance Dodson DO [address] [place] [address], [address], [facility] 01/14/2023 16:36:41 SARS-COV-2 (COVID-19) vaccine, UNSPECIFIED 12/06/19 24 [facility] 12/10/2023 11:13:47 influenza, unspecified formulation 11/08/19 24 completed Imtiaz jarvis [facility] 12/13/2023 13:44:35 Td (adult) 02/17/19 10 completed Not Available [facility] 09/19/2022 22:44:39 Influenza, split virus, quadrivalent, preservative 12/02/19 18 completed Not Available [facility] 09/19/2022 22:44:39 Hep B, unspecified formulation 05/23/18 99 completed Not Available [facility] 09/19/2022 22:44:39 pneumococcal, unspecified formulation 05/04/19 13 completed Not Available [facility] 09/19/2022 22:44:39 zoster live 11/18/19 07 completed Not Available [facility] 09/19/2022 22:44:39 Influenza, split virus, quadrivalent, preservative 11/22/19 19 completed Not Available [facility] 09/19/2022 22:44:39 pneumococcal polysaccharide PPV23 11/22/19 19 completed Not Available [facility] 09/19/2022 22:44:39 Tdap 11/16/19 20 completed Not Available [facility] 09/19/2022 22:44:39 Influenza, split virus, quadrivalent, preservative 11/16/19 20 completed Not Available [facility] 09/19/2022 22:44:39 pneumococcal, unspecified formulation 12/02/19 18 completed Not Available [facility] 09/19/2022 22:44:39 Hep B, unspecified formulation 05/23/18 99 completed Not Available [facility] 09/19/2022 22:44:39 zoster, unspecified formulation 07/19/19 20 completed Not Available [facility] 09/19/2022 22:44:39 zoster, unspecified formulation 12/05/19 20 completed Not Available [facility] 09/19/2022 22:44:39 Tdap 11/14/19 20 completed Not Available [facility] 09/19/2022 22:44:39 SARS-COV-2 (COVID-19) vaccine, UNSPECIFIED 04/28/19 21 completed Not Available [facility] 09/19/2022 22:44:39 Past Encounters Encounter ID Performer Location Encounter Start Date Encounter Closed Date Diagnosis/Indication Diagnosis SNOMED-CT Code Diagnosis ICD10 Code Diagnosis Note [id number] DO Nahomi Nagel Internal [facility] [address] [facility],[place] [address] 06/28/2017 13:26:26 06/28/2017 14:13:42 Impaired fasting glycemia 317746870 R73.01 discussion re problem with rising gluc on a1c relates not overeating and not sure where its coming from Essential hypertension 83981826 I10 excellent and is doing well with no issues Hypercholesterolemia 136 47609 E78.00 has not tolerated statins , despite multiple attempts in past seemed to tolerate simvastati n will start in july rhys dose and willcall if issue Hypothyroidism 73619594 E03.9 will need f/u lab in the next blld draw [id number] Terrance Dodson, [facility] [address] [facility] [address] [address] 11/01/2017 13:28:44 11/01/2017 15:07:05 Asthma 712825888 J45.909 doing well with breo will try the otc flonase and will see how that works Hypercholesterolemia 136 76362 E78.00 has not tolerated statins , despite multiple attempts in past seemed to tolerate simvastati n will start in july low dose and if issue will call Impaired f asting glycemia 994423229 R73.01 discussion re problem with rising gluc on a1c relates not overeating and not sure where its coming from a1c is stable at 6.4 warned to keep it stable, she will as she is discipline d Essential hypertension 03482572 I10 excellent and is doing well with no issues [id number] Terrance Dodson [facility] [address] [facility] [address] [address] 02/21/2018 13:23:14 02/21/2018 15:06:32 Hypothyroidism 16287489 E03.9 will need f/u lab in the next blld draw Impaired f asting glycemia 762951279 R73.01 discussion re problem with rising gluc on a1c relates not overeating and not sure where its coming from a1c is stable at 6.4 warned to keep it stable, she will as she is discipline d Essential hypertension 99427970 I10 excellent and is doing well with no issues Asthma 455036935 J45.90 9 doing well with breo will try the otc flonase and will see how that works 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 Adult heal th examination 854348196 Z00.00 needs follow up physical with moon amaya [id number] Terrance Dodson [facility] [address] [facility] [address],[place] [address] 06/01/2018 13:16:09 06/03/2018 11:14:21 Hypercholesterolemia 90052868 E78.00 continue simvastati n 2 X week Asthma 681167686 J45.90 9 intermitte nt, breo prn Impaired f asting glycemia 126619172 R73.01 A1C up to 6.9 discussed Hypothyroidism 57076287 E03.9 nml labs Essential hypertension 75147392 I10 elevated-f ollow after stress test Allergic rhinitis 079273 04 J30.9 nasalcrom helpful Stricture of esophagus 92351147 K22.2 asymptomat ic currently Venous ret inal branch occlusion 24164044 H34.8312 Dyspnea 731392929 R06.02 Terrance Dodson [facility] [address] [facility],[place] [address] 06/28/2018 11:08:18 06/28/2018 11:57:10 Hypercholesterolemia 05761834 E78.00 continue simvastati n 2 X week Essential hypertension 40221839 I10 elevated-i ncrease losartan, f/u 3 weeks Hiatal hernia 94349195 K 44.9 Dyspnea 135149124 R06.02 will reschedule stress test when BP controlled Terrance Dodson [facility] [address] [facility],[place] [address] 07/25/2018 11:35:49 07/25/2018 12:14:46 Essential hypertension 25502990 I10 Asthma 027135817 J45.90 9 stable Hypothyroidism 68549323 E03.9 was normal range in april Terrance Dodson [facility] [address] [facility],[place] [address] 08/22/2018 10:51:15 08/22/2018 12:25:37 Essential hypertension 90296388 I10 Asthma 146514965 J45.90 9 stable Hypothyroidism 08008911 E03.9 was normal range in april Impaired f asting glycemia 525105996 R73.01 [id number] Terrance Dodson [facility] [address] [facility], [place] [address] 12/06/2018 10:49:55 12/06/2018 12:19:18 Essential hypertension 94645000 I10 Asthma 119862104 J45.90 9 stable Hypothyroidism 22817280 E03.9 was normal range in april Impaired f asting glycemia 212728169 R73.01 will try to control the sugar better with diet and exercise and will trial metformin at low dose to maintain <7 aic Screening procedure 2012 5006 Z13.9 [id number] [facility] [address] [facility] [address],[place] [address] 07/05/2019 14:27:58 07/05/2019 15:04:47 Essential hypertension 08973331 I10 excellent and is doing well with no issues Impaired f asting glycemia 896511350 R73.01 discussion re problem with rising gluc on a1c relates not overeating and not sure where its coming from a1c is stable at 6.4 warned to keep it stable, she will as she is discipline d Asthma 194200535 J45.90 9 doing well with breo will try the otc flonase and will see how that works Retinopath y due to diabetes mellitus 2505354 E11.3293 Type 2 amilcar betes mellitus 23279466 E11.37X9 Achalasia of esophagus 61038724 K22.0 is stable with the omeprazole followed by dr vyas no need for followup unless issues [id number] Terrance Dodson [facility] [address] [facility],Ta itjennifer Z[place] [facility] [place] [address] 11/13/2019 13:23:10 11/13/2019 15:03:11 Type 2 diabetes mellitus 66510892 E11.37X9 a1c is 6.7 microalbum in sl positive but no higher than in past Achalasia of esophagus 34169821 K22.0 is stable with the omeprazole followed by dr vyas no need for followup unless issues but she is due for colonoscop y and egd but this will be on hold due to sob episode Hypercholesterolemia 136 55407 E78.00 has not tolerated statins , despite multiple attempts in past seemed to tolerate simvastati n will start in july low dose and if issue will call Hypothyroidism 11517293 E03.9 will need f/u lab in the next bld draw Essential hypertension 45317231 I10 excellent and is doing well with no issues Dyspnea on exertion 6084 5006 R06.09 could this be her presentati on of coronary disease [id number] Terrance Dodson, [facility] [address] [facility] [address],[place] [facility] [place] [address] 02/26/2020 08:42:27 02/26/2020 15:31:51 Essential hypertension 53930986 I10 excellent and is doing well with no issues Hypothyroidism 03476248 E03.9 will need f/u lab in the next bld draw Type 2 amilcar betes mellitus 83193166 E11.37X9 a1c is 6.5 was 6.7 microalbum in sl positive but no higher than in past Asthma 451795816 J45.90 9 doing well with breo will try the otc flonase and will see how that works Gastroesop hageal reflux disease 204728277 K21.9 [place] [id number] Terrance Dodson [facility] [address] [facility],[place] [facility] [place] [address] 05/20/2020 13:23:29 05/20/2020 14:23:52 Asthma 036294480 J45.909 doing well with breo will try the otc flonase and will see how that works Impaired f asting glycemia 016666930 R73.01 discussion re problem with rising gluc on a1c relates not overeating and not sure where its coming from a1c is stable at 6.2 was 6.4 warned to keep it stable, she will as she is discipline d Essential hypertension 16364427 I10 excellent and is doing well with no issues Hot flash caused by medication 898932662 T50.905D could this be thyroid ??? we will need tsh ordered also any other med [id number] Terrance Dodson [facility] [address] [facility] [address],[place] [facility] [place] [address] 12/06/2020 11:04:57 12/06/2020 14:33:22 Asthma 293476868 J45.909 doing well with breo will try the otc flonase and will see how that works Hypothyroidism 29844170 E03.9 will need f/u lab in the next bld draw Essential hypertension 62484085 I10 excellent and is doing well with no issues Type 2 amilcar betes mellitus 90936557 E11.37X9 a1c is now 6.8 and was 6.5 was 6.7we will cont the metformin once a day so we will see how she does in the 3 monthsmicr oalbumin sl positive but no higher than in past [id number] Terrance Dodson, [facility] [address] [facility],[place] [address] 04/18/2021 13:28:12 04/18/2021 14:06:42 Active or passive immunization 779880931 Z23 utd Adult heal th examination 492995529 Z00.00 needs follow up physical with moon or monique Asthma 862586830 J45.90 9 doing well with breo will try the otc flonase and will see how that works Type 2 amilcar betes mellitus 30965738 E11.37X9 a1c is now 6.8 and was 6.5 was 6.7we will cont the metformin once a day so we will see how she does in the 3 monthsmicr oalbumin sl positive but no higher than in past Myalgia ca used by statin 8448829191 0141375 T46.6X5A she will stop the statin for 2 weeks and let me know how she feels [id number] Terrance Dodson, [facility] [address] [facility],[place] [address] 06/06/2021 13:28:27 06/06/2021 13:57:38 Type 2 diabetes mellitus 51674479 E11.37X9 a1c is now 6.8 and was 6.5 was 6.7we will cont the metformin once a day so we will see how she does in the 3 monthsmicr oalbumin sl positive but no higher than in past Asthma 424726411 J45.90 9 doing well with breo will try the otc flonase and will see how that works Hypothyroidism 73097515 E03.9 will need f/u lab in the next bld draw Essential hypertension 85738613 I10 excellent and is doing well with no issues Lumbar spondylosis 98218 0009 M47.896 she has been having pain 3/10 with worse episodes but we will hold off on any referral unless pt gives a call stating pain has become so bad it interferes with quality of lifewould first need an MRI last done in 2014 Postmenopa usal osteopenia 526305215 M85.80 we will have pt maximize her otc treatment and will repeat the bone density in jan-feb Hypercholesterolemia 136 02332 E78.00 she is taking 4 x per week and is tolerating in past seemed to tolerate simvastati n Retinopath y due to diabetes mellitus 4867098 E11.3293 she has been [email or web address] [id number] Terrance Dodson [facility] [address] [facility], [place] [address] 08/27/2021 13:32:50 08/27/2021 14:27:26 Adult health examination 207995831 Z00.00 doing well overall Screening for cardiovascular system disease 951811514 Z13.6 no issues she is on the statins Screening for malignant neoplasm of colon 646618874 Z12.11 has been stable Screening for osteoporosis 858895677 Z13.820 she is up to date Screening mammography 24 463149 Z12.31 due in february if its needed Asthma 459772357 J45.90 9 doing well with breo will try the otc flonase and will see how that works [id number] Terrance Dodson [facility] [address] [facility],[employer] [place] [address] 12/24/2021 08:38:15 12/24/2021 14:27:39 Type 2 diabetes mellitus 75647443 E11.37X9 a1c is now 6.7 was 6.8 and was 6.5 was 6.7we will cont the metformin once a day so we will see how she does in the 3 monthsmicr oalbumin sl positive but no higher than in past Asthma 878941073 J45.90 9 she will look up symbicort / advairwill provide with samples of trelegy for now Active or passive immunization 618990131 Z23 now utd with all vacc includ flu etc Hypothyroidism 32419691 E03.9 will need f/u lab in the next bld draw Low back pain 120839147 M54.50 has evid of left leg weakness assoc with worsening back pain will have her get xr ffirst [id number] Terrance Dodson [facility] [address] [facility] [address],[place] [facility] [place] [address] 03/27/2022 13:28:40 03/27/2022 16:16:52 Type 2 diabetes mellitus 21683564 E11.37X9 a1c is now 6.4 6.7 was 6.8 and was 6.5 was 6.7we will cont the metformin once a day so we will see how she does in the 3 monthsmicr oalbumin sl positive but no higher than in past Essential hypertension 97526565 I10 excellent and is doing well with no issues Screening mammography 24 168799 Z12.31 due in february if its needed Asthma 596468080 J45.90 9 she will look up symbicort / advairwill provide with samples of trelegy for now and cont [id number] Terrance Dodson [facility] [address] [facility],[place] [facility] [place] [address] 07/14/2022 11:43:17 07/14/2022 13:33:18 Active or passive immunization 469433418 Z23 now utd with all vacc includ flu etc Adult heal th examination 401384823 Z00.00 doing well overall very good and is feeling well Type 2 amilcar betes mellitus 49188102 E11.37X9 a1c is now 6.2 from 6.4 6.7 was 6.8 and was 6.5 was 6.7we will cont the metformin once a day so we will see how she does in the 3 monthsmicr oalbumin sl positive but no higher than in past Asthma 514542144 J45.90 9 she will look up symbicort / advairwill provide with samples of trelegy for now and cont [id number] Terrance Dodson [facility] [address] [facility] [address],[place] [address] 10/06/2022 08:01:53 10/06/2022 13:55:45 Type 2 diabetes mellitus 68705296 E11.37X9 a1c is now 6.5 and was 6.2 from 6.4 we will cont the metformin once a day so we will see how she does in the 3 monthsmicr oalbumin sl positive but no higher than in past Asthma 685210148 J45.90 9 she will look up symbicort / advairwill provide with samples of trelegy for now and cont Hypercholesterolemia 136 15028 E78.00 she is taking 4 x per week and is tolerating in past seemed to tolerate simvastati n Hyperlipidemia 13977637 E78.5 Hypothyroidism 61989065 E03.9 will need f/u lab in the next bld draw [id number] Terrance Dodson [facility] [address] [facility],[place], [place] 7 01/04/2023 11:23:37 01/04/2023 14:45:13 Asthma 732068274 J45.909 she will look up symbicort / advairwill provide with samples of trelegy for now and cont Vitamin D deficiency 347 05925 E55.9 Stricture of esophagus 43022446 K22.2 Type 2 amilcar betes mellitus 48378795 E11.37X9 a1c is now 6.8 was 6.5 and was 6.2 from 6.4we will cont to monitor the kidneys since she is on metformin with low threshold to discontinu ewe will cont the metformin once a day so we will see how she does in the 3 monthsmicr oalbumin sl positive but no higher than in past [id number] Terrance Dodson [facility] [address] [facility],[place] [address] 04/20/2023 13:51:03 04/20/2023 15:11:49 Type 2 diabetes mellitus 99466290 E11.37X9 a1c is now .8 was 6.5 and was 6.2 from 6.4we will cont to monitor the kidneys since she is on metformin with low threshold to discontinu ewe will cont the metformin once a day so we will see how she does in the 3 monthsmicr oalbumin sl positive but no higher than in past Asthma 118554268 J45.90 9 she will look up symbicort / advairwill provide with samples of trelegy for now and cont Essential hypertension 77595606 I10 excellent and is doing well with no issues Hypothyroidism 69875604 E03.9 f/u lab is good Lumbar spondylolisthesis 4959285351 64715 M43.16 is about the same PT not too helpful Vitamin D deficiency 347 67466 E55.9 [id number] Terrance Dodson, [facility] [address] [facility], [place] [address] 09/01/2023 13:26:08 09/01/2023 14:11:32 Adult health examination 565213880 Z00.00 doing well overall very good and is feeling well Active or passive immunization 476709408 Z23 now utd with all vacc includ flu etc Screening for cardiovascular system disease 239039379 Z13.6 no issues she is on the statins Screening for malignant neoplasm of colon 277440660 Z12.11 has been stable colonoscop y this lyear and was good Screening for osteoporosis 779478244 Z13.820 she is up to date Screening mammography 24 116121 Z12.31 due in april if its needed Type 2 amilcar betes mellitus 85362117 E11.37X9 a1c is now 6.2 .8 was 6.5 and was 6.2 from 6.4we will cont to monitor th2e kidneys since she is on metformin with low threshold to discontinu ewe will cont the metformin once a day so we will see how she does in the 3 monthsmicr oalbumin sl positive but no higher than in past [id number] Terrance Dodson, [facility] [address] [facility],[place] [address] 10/27/2023 14:16:23 10/27/2023 15:14:53 Retinopathy due to diabetes mellitus 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 E11.3293 she has been stable and followed by ophthomalo gist Type 2 amilcar betes mellitus 78148825 E11.37X9 a1c is now pending was 6.2 .8 was 6.5 and was 6.2 from 6.4we will cont to monitor th2e kidneys since she is on metformin with low threshold to discontinu ewe will cont the metformin once a day so we will see how she does in the 3 monthsmicr oalbumin sl positive but no higher than in past Essential hypertension 84467368 I10 excellent and is doing well with no issues Actinic keratosis 007 L57.0 [id number] Terrance Dodson [facility] [address] [facility] [place] [address] 12/13/2023 13:30:11 12/13/2023 14:33:54 Asthma 607414436 J45.909 she will look up symbicort / advairwill provide with samples of trelegy for now and cont Type 2 amilcar betes mellitus 26004846 E11.37X9 a1c is now pending was 6.7 6.2 .8 was 6.5 and was 6.2 from 6.4we will cont to monitor the kidneys since she is on metformin with low threshold to discontinu ewe will cont the metformin once a day so we will see how she does in the 3 monthsmicr oalbumin sl positive but no higher than in past Hypothyroidism 38017796 E03.9 f/u lab is good Essential hypertension 64068385 I10 increases amlodipine 10 did great bps are good at home Infection of sebaceous cyst 345128777 L72.3 will treat now and schedule excision [id number] Terrance Dodson [facility] [address] [facility] [place] [address] 01/04/2024 14:21:05 01/04/2024 14:57:41 Familial hypertriglyceridemia 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 5894627 E11.3293 she has been stable and followed by ophthomalo gist Infection of sebaceous cyst 117930131 L72.3 will treat now and schedule excision Type 2 amilcar betes mellitus 81797066 E11.37X9 a1c is now pending was 6.7 6.2 .8 was 6.5 and was 6.2 from 6.4we will cont to monitor the kidneys since she is on metformin with low threshold to discontinu ewe will cont the metformin once a day so we will see how she does in the 3 monthsmicr oalbumin sl positive but no higher than in past [id number] Terrance Machado [place] [facility] [address] [facility], [place] [address] 03/22/2024 14:08:23 03/22/2024 15:31:24 Asthma 001661308 J45.909 she will look up nadine / radha provide with samples of trelegy for now and cont Impaired f asting glycemia 364261567 R73.01 discussion re problem with rising gluc on a1c relates not overeating and not sure where its coming from a1c is stable at 6.2 was 6.4 warned to keep it stable, she will as she is discipline d Essential hypertension 99745933 I10 increases amlodipine 10 did great bps are good at home Hypercholesterolemia 136 00261 E78.00 she is taking 4 x per week and is tolerating in past seemed to tolerate simvastati n Hypothyroidism 78075155 E03.9 f/u lab is good Constipation 44989914 K5 9.00 will add fiber caps Impacted c erumen of bilateral ears 8901806249 838990 H61.23 Health Concerns Section Related Observation LastModified by Organization Detai ls LastModified Time None Recorded Concern Status LastModified by Organization Details LastModified Time None Recorded Advance Directives Directive None Recorded Payers Insurance Date Sequence Insurance Name Policy Number Policy Villegas Covered Member ID Villegas Member ID Guarantor Name 03/22/2024 1 FORMERLY [facility] - MEDICARE PREFERRED (MEDICARE REPLACEMENT HMO) [facility] Ilsa Hector [id number] Ilsa Hector Notes Date Note Type Note Provider Name and Address Organization Details Recorded Time 4 text/htm l here for cpedoing well and is feeling well Terrance Dodson, DO [address] [place], [address], [facility] 09/01/2023 14:02:37 4 text/htm l Care Management - HypertensionReported bypatient.Self Care:not under emotional stress Severity:symptoms are improving; does not interfere with daily activities Associated Symptoms:no dizziness; no lightheadedness; no chest pain; no shortness of breath; no palpitations; no edema; no calf muscle cramps; no blurred vision; no confusion; no headaches; no fatigueNotes:getting eyes eval every 6 weeks here for bp check relates anjalijamarcus nurse had elevated bpnote she has a new med for her eye called eylea which can raise her bphome bp readings are noted to be elevated she is noting this since on the eylea Terrance Dodson DO [address] [place], [id number], [facility] 10/27/2023 15:06:54 4 text/htm l Care Management - DiabetesReported bypatient.Self Care:seeing eye doctor yearly for dilated eye exam; checking feet regularly; normal range of home blood sugars (in the low 100s); no side effects from medications Associated Symptoms:symptoms are usually well controlled; no fatigue; no dizziness; no excessive sweating; no headaches; no confusion; no increased thirst; no increased appetite; no increased urination; no blurred vision; no numbness of feet; no calluses on feetCare Management - HypertensionReported bypatient.Self Care:not under emotional stress Severity:symptoms are improving; does not interfere with daily activities Associated Symptoms:no dizziness; no lightheadedness; no chest pain; no shortness of breath; no palpitations; no edema; no calf muscle cramps; no blurred vision; no confusion; no headaches; no fatigue here for rechkand feels well no major issueshas a new lump on her back no cp no sob unless going up a hill Terrance Dodson DO [address] [place], [id number], [facility] 12/13/2023 14:30:25 4 text/htm l here for cyst removal it popped last week and now is flat but very sore still leaking Terrance Dodson DO [address] [place], [id number], [facility] 01/04/2024 14:56:36 5 text/htm l here for rechkand is doing well overallrelates her low back and sacral area suddenly became very sore and no injurystates present for 2 weeks now in PT and is doing better Terrance Dodson DO [address] [place], [id number], [facility] 03/22/2024 14:47:31 OBGyn Episode No OBEpisode recorded.
[2024-08-29 13:51] LABS: MANUAL DIFF FLAG NO
[2024-08-29 14:01] LABS: Hematocrit 41.1 % (37.0-47.0); Hemoglobin 13.5 g/dl (12.0-16.0); Imm Gran Abs Auto 0.02 X10*3/uL (0.00-0.03); Imm Gran Pct Auto 0.3 % (0.0-0.4); Lymphocytes Absolute Auto 2.2 X10*3/uL (1.2-4.9); Mean Corpuscular HGB Conc 32.8 g/dl (31.0-35.0); Mean Corpuscular Hemoglobin 29.2 pg (27.0-33.0); Mean Corpuscular Volume 89.0 fL (80.0-98.0); NRBC Abs Auto 0.000 X10*3/uL (0.0-0.012); NRBC Pct Auto 0.0 /100WBC (0.0-0.2); Platelet Count 242 X10*3/uL (160-400); Red Blood Count 4.62 X10*6/uL (4.20-5.50); Reticulocytes Absolute 0.078 X10*6/uL (0.026-0.095); White Blood Count 6.3 X10*3/uL (4.8-10.8)
[2024-08-29 14:15] LABS: Hemoglobin A1C 171.6278 umol/L; Total Hemoglobin (HGBA1C) 3584.0557 umol/L
[2024-08-29 14:33] LABS: Alanine Aminotransferase 28 U/L (0-31); Albumin Level 4.0 g/dL (3.5-5.0); Alkaline Phosphatase 68 U/L (39-117); Anion Gap 14 (12-20); Aspartate Amino Transferase 22 U/L (5-31); Blood Urea Nitrogen 12 mg/dL (9-16); Calcium 9.2 mg/dL (8.4-10.2); Carbon Dioxide 29 mmol/L (22-29); Chloride 105 mmol/L (96-108); Cholesterol 191 mg/dL (<200); Estimated Glomerular Filt Rate > 60; Ferritin 62 ng/mL (10-250); HDL Cholesterol 47 mg/dL (>40); Iron 78 mcg/dL (30-160); Percent Iron Saturation 27 % (15-50); Potassium 4.3 mmol/L (3.3-5.1); Sodium 144 mmol/L (135-145); Total Iron Binding Capacity 293 mcg/dL (228-428); Total Protein 6.5 g/dL (6.5-8.0); Triglycerides 246 mg/dL (<150); Unsaturated Iron Binding 215 ug/dL
[2024-08-29 14:54] LABS: Folate 14.7 ng/mL (> or = 4.0); Vitamin B12 860 pg/mL (200-900)
== END 2024-08-29 09:53 | disposition home or self-care (01) ==
LOC: HO.MANLDS 09:52
PROVIDERS: Visit Provider Internal Medicine
DX: I10 Essential (primary) hypertension (principal); E11.9 Type 2 diabetes mellitus without complications
CPT/HCPCS: 36415; 80053; 80061; 82306; 82607; 82728; 82746; 83036; 83540; 85025; 85045

== ENCOUNTER 2025-01-02 10:44 | Outpatient (REF) | payer MEDICARE, SELFPAY ==
[2025-01-02 14:19] LABS: Alanine Aminotransferase 19 U/L (0-31); Albumin Level 4.2 g/dL (3.5-5.0); Alkaline Phosphatase 67 U/L (39-117); Anion Gap 14 (12-20); Aspartate Amino Transferase 20 U/L (5-31); Blood Urea Nitrogen 16 mg/dL (9-16); Calcium 9.2 mg/dL (8.4-10.2); Carbon Dioxide 28 mmol/L (22-29); Chloride 103 mmol/L (96-108); Estimated Glomerular Filt Rate 60; Potassium 4.3 mmol/L (3.3-5.1); Sodium 141 mmol/L (135-145); Total Protein 6.9 g/dL (6.5-8.0)
== END 2025-01-02 10:45 | disposition home or self-care (01) ==
LOC: HO.MANLDS 10:44
PROVIDERS: Visit Provider Internal Medicine
DX: E11.37X9 Type 2 diabetes mellitus with diabetic macular edema, resolved following treatment, unspecified eye (principal); Z13.1 Encounter for screening for diabetes mellitus
CPT/HCPCS: 36415; 80053; 83036